=== PATIENT | female | born 1935 | race Caucasian/White ===

== ENCOUNTER → 2024-02-08 10:15 | Outpatient (REF) | payer OTHER, SELFPAY ==
[2024-02-08 11:27] LABS: % Basophils 0.5 % (0-2); % Eosinophils 3.2 % (0-6); % Immature Granulocytes 0.1 % (0-0.5); % Lymphocytes 23.5 % (20.5-51.1); % Monocytes 7.7 % (1.7-9.3); Absolute Eosinophils 0.2 10^3/uL (0-0.7); Absolute Lymphocytes 1.8 10^3/uL (1.2-3.4); Absolute Monocytes 0.6 10^3/uL (0.1-0.6); Absolute Neutrophils 4.9 10^3/uL (1.4-6.5); Hematocrit 30.5 % (37.0-47.0); Mean Corp Hgb Conc. 32.8 g/dL (33.0-37.0); Mean Corpuscular Hgb 29.5 pg (27.0-31.0); Mean Platelet Volume 11.6 fL (7.4-10.4); Nucleated Red Blood Cells % 0 %; Platelet Count 293 10^3/uL (130-400); Red Blood Cell Count 3.39 10^6/uL (4.20-5.40); Red Cell Dist. Width 13.2 % (11.5-14.5); White Blood Cell Count 7.5 10^3/uL (4.8-10.8)
[2024-02-08 11:55] LABS: ALT (SGPT) < 10 U/L (0-35); AST (SGOT) 15 U/L (14-36); Albumin 3.5 g/dl (3.5-5.0); Alkaline Phosphatase 79 U/L (38-126); Blood Urea Nitrogen 27 mg/dl (7-17); Calcium 10.4 mg/dl (8.4-10.2); Carbon Dioxide 30 mmol/L (22-30); Chloride 103 mmol/L (98-107); Glucose 91 mg/dl (70-99); HDL Cholesterol 62 mg/dl; LDL Cholesterol, Calculated 50 mg/dl; Potassium 4.1 mmol/L (3.5-5.1); Sodium 139 mmol/L (135-145); Total Bilirubin 0.4 mg/dl (0.2-1.3); Total Cholesterol 130 mg/dl (50-199); Total Protein 5.8 g/dl (6.3-8.2); Triglyceride 91 mg/dl (10-149); Very Low Density Lipoprotein 18 mg/dl (0-30); eGFR 54.19
[2024-02-08 12:33] LABS: TSH Reflex To Free T4 0.75 uIU/ml (0.47-4.68)
== END ==
LOC: OLABPV 10:15
PROVIDERS: ATTENDING PHYSICIAN Family Medicine
DX: Z13.1 Encounter for screening for diabetes mellitus (principal); N18.31 Chronic kidney disease, stage 3a; Z13.6 Encounter for screening for cardiovascular disorders; D64.9 Anemia, unspecified; Z13.29 Encounter for screening for other suspected endocrine disorder
CPT/HCPCS: 36415; 80053; 80061; 84443; 85025

== ENCOUNTER 2024-07-03 09:05 | Emergency (ER) | payer OTHER, SELFPAY ==
[2024-07-03 09:13] VITALS: BP 148/94
--- NOTE | 2024-07-03 09:32 | ED.GENMED ---
History of Present Illness
<RAFFI Flannery - Last Filed: 07/03/24 12:51>
General
Chief Complaint: Abdominal Pain
Source: patient and family
Exam Limitations: none
Time Seen by Provider: 07/03/24 09:25
Nursing documentation reviewed up to this point in time: agreed with
History of Present Illness
History of Present Illness:
Patient is a 89-year-old female past medical history of duodenal ulcer gastropathy anemia from [facility] independent living presents with right upper quadrant pain for the past 3 days. She denies any injury she feels that it is simply there however
she feels that when she turns or twists and changes position. she does feel it in her right-sided back as well. Currently she is asymptomatic. She is concerned because she reports she has a history of aneurysm. She has not aware of where the
aneurysm is. In review of records she has 3.2 cm abdominal aortic aneurysm. This was incidentally found she denies any chest pain.
She denies any nausea vomiting.
She denies any shortness of breath.
Past History
<RAFFI Flannery - Last Filed: 07/03/24 12:51>
Past History
ED Past Medical History: HTN, Hypercholesterolemia and Other (Spinal stenosis/sciatica)
ED Past Surgical History: Appendectomy, Gynecological and Orthopedic (Left total knee replacement)
Social History
Tobacco: Former smoker
Alcohol: None
Personal:
Living: assisted living
Review of Systems
<RAFFI Flannery - Last Filed: 07/03/24 12:51>
Review of Systems
Allergies reviewed?: Yes
All Other Systems: ROS reviewed and negative except as documented in HPI and ROS
Constitutional: Reports no symptoms
Respiratory: Denies trouble breathing
Cardiac: Reports no symptoms
: Reports other (pain in right upper abd region )
Skin: Reports no symptoms
Neurological: Reports no symptoms
Psychiatric: Reports no symptoms
Phy Exam
<RAFFI Flannery - Last Filed: 07/03/24 12:51>
General Physical Exam
General Presentation: no apparent distress
General age: appears stated age
General Skin: warm and dry
General Habitus: elderly
General Mental: alert
General Hydration: appears well hydrated
Cardiovascular Exam
Cardiovascular Exam: regular rate/rhythm, no murmur and normal peripheral pulses
Pulmonary Exam
Pulmonary Exam: lungs clear and no respiratory distress
Gastrointestinal Exam
Gastrointestinal Exam: soft and other (mild ruq tendernes non tender to ribs no rash )
Neurological Exam
Neurological Exam: alert
Musculoskeletal Exam
Musculoskeletal Exam: full ROM
Skin Exam
Skin Exam: normal color and warm/dry
Psychiatric Exam
Psychiatric Exam: normal mood/affect
Course
<RAFFI Flannery - Last Filed: 07/03/24 12:51>
Orders/Labs/Results
Orders:
Orders
07/03/24 09:19
ECG [Electrocardiogram (*1)] Urgent
Reason for Study: Abdominal Pain
EKG- Treatment ONCE
07/03/24 09:39
Cardiac Monitoring- Treatment ONCE
IV Insert/Care/Rem.- Treatment PRN
US Abdomen Complete/Upper Urgent
Comment:
Reason For Exam: ruq pain
07/03/24 10:03
Complete Blood Count/With Diff Urgent
Comprehensive Metabolic Panel Urgent
Lipase Urgent
07/03/24 11:09
CT Chest/abd/pelvis Angio W/wo Urgent
Comment:
Reason For Exam: abd pain known aneurysm
Abnormal Lab Results
07/03/24
10:03
RBC 3.21 L 10^6/uL
(4.20-5.40)
Hgb 9.5 L g/dL
(12.0-16.0)
Hct 29.5 L %
(37.0-47.0)
MCHC 32.2 L g/dL
(33.0-37.0)
Absolute Neuts (auto) 7.0 H 10^3/uL
(1.4-6.5)
Neutrophils % 78.3 H %
(42.2-75.2)
Lymphocytes % 13.1 L %
(20.5-51.1)
BUN 26 H mg/dl
(7-17)
Glucose 129 H mg/dl
(70-99)
Calcium 10.3 H mg/dl
(8.4-10.2)
Total Protein 5.9 L g/dl
(6.3-8.2)
07/03/24 10:03
07/03/24 10:03
Vital Signs
Initial and Last Documented VS:
Initial Vital Signs
Temp Pulse Resp BP Pulse Ox
97.8 F 79 18 148/94 97
07/03/24 09:13 07/03/24 09:13 07/03/24 09:13 07/03/24 09:13 07/03/24 09:13
Last Documented Vital Signs
Temp Pulse Resp BP Pulse Ox
97.8 F 88 17 135/114 94
07/03/24 09:13 07/03/24 12:16 07/03/24 12:16 07/03/24 11:08 07/03/24 12:16
Benefit Authorizer consulted with Physician
Benefit Authorizer consulted with physician?: Yes
Name of Physician Consulted: Fly
<Sherwin Bill MD - Last Filed: 07/03/24 16:40>
Orders/Labs/Results
Orders:
Orders
07/03/24 09:19
ECG [Electrocardiogram (*1)] Urgent
Reason for Study: Abdominal Pain
EKG- Treatment ONCE
07/03/24 09:39
Cardiac Monitoring- Treatment ONCE
IV Insert/Care/Rem.- Treatment PRN
US Abdomen Complete/Upper Urgent
Comment:
Reason For Exam: ruq pain
07/03/24 10:03
Complete Blood Count/With Diff Urgent
Comprehensive Metabolic Panel Urgent
Lipase Urgent
07/03/24 11:09
CT Chest/abd/pelvis Angio W/wo Urgent
Comment:
Reason For Exam: abd pain known aneurysm
Abnormal Lab Results
07/03/24
10:03
RBC 3.21 L 10^6/uL
(4.20-5.40)
Hgb 9.5 L g/dL
(12.0-16.0)
Hct 29.5 L %
(37.0-47.0)
MCHC 32.2 L g/dL
(33.0-37.0)
Absolute Neuts (auto) 7.0 H 10^3/uL
(1.4-6.5)
Neutrophils % 78.3 H %
(42.2-75.2)
Lymphocytes % 13.1 L %
(20.5-51.1)
BUN 26 H mg/dl
(7-17)
Glucose 129 H mg/dl
(70-99)
Calcium 10.3 H mg/dl
(8.4-10.2)
Total Protein 5.9 L g/dl
(6.3-8.2)
07/03/24 10:03
07/03/24 10:03
Vital Signs
Initial and Last Documented VS:
Initial Vital Signs
Temp Pulse Resp BP Pulse Ox
97.8 F 79 18 148/94 97
07/03/24 09:13 07/03/24 09:13 07/03/24 09:13 07/03/24 09:13 07/03/24 09:13
Last Documented Vital Signs
Temp Pulse Resp BP Pulse Ox
97.8 F 88 17 135/114 94
07/03/24 09:13 07/03/24 12:16 07/03/24 12:16 07/03/24 11:08 07/03/24 12:16
<RAFFI Flannery - Last Filed: 07/03/24 12:51>
MDM/Problems Addressed
MDM/Problems Addressed:
Patient is an 89-year-old female who presents to the ER for right-sided/right upper quadrant pain for the past several days. She denies any injury but does feel this is worse with movement. She does have a known abdominal aortic aneurysm. She
presents today awake alert in no acute distress well-appearing she is tender in the right upper quadrant. Lungs are clear she is nontachycardic not hypoxic she is hypertensive but does have a history of hypertension. She denies any fevers or white
count is normal hemoglobin is minimally low at 9. 5(was 10.0 February 07) .
Patient evaluate ED physician ultrasound initially done which did show a distal abdominal aortic aneurysm slightly larger than on prior study. CAT scan was done which does show again an infrarenal abdominal aortic aneurysm which has increased in
size from 3.4 cm to 3 no evidence of leakage or dissection. No other findings. Patient remains well-appearing in no acute distress. No pain presently
<RAFFI Flannery - Last Filed: 07/03/24 12:51>
*Radiology
Radiology exam reviewed: radiology read reviewed (Ultrasound shows: Distal abdominal aortic aneurysm has been previously but appears larger than on prior study)
*Pulse Oximetry
Patient hypoxic: no
*Critical Care Note
Total Time (30-74mins, 75-104mins- exclusive of procedures): Not Applicable
Data Reviewed
Review of Other/Old Records Reveals: Radiology Studies (aorta ultrasound shows stable fusiform infrarenal abdominal aortic aneurysm)
<Sherwin Bill MD - Last Filed: 07/03/24 16:40>
*EKG
Interpreted by ED Provider?: Yes
EKG Intrepretation Date: 07/03/24
Heart Rate: 84
Rate: normal
Rhythm: sinus
Natalia: normal axis
Interval: normal interval
QRS Pattern: normal QRS
ED Attending Note
<RAFFI Flannery - Last Filed: 07/03/24 12:51>
-
Portions of this chart may have been created with voice recognition software.� Occasional wrong word or��sound alike� substitutions may have occurred due to the inherent limitations of voice recognition software.
<Sherwin Bill MD - Last Filed: 07/03/24 16:40>
ED Attending Note
Patient seen and examined by attending physician: Yes
ED Attending Note:
Patient with history of abdominal aortic aneurysm, currently being monitored, presents ED secondary to intermittent upper abdominal pain over the past 2 days. Denies fever or chills. Denies trauma. Denies recent change in level of activities.
Abdominal pain described as 'discomfort', radiating to the back, without any alleviating or exacerbating factors. Denies loss of appetite. Denies recent change in medications or diet. Denies previous history of similar symptoms. Denies chest
pain or shortness of breath. Denies change in bowel habits. Deny recent travel.
Physical Exam
General: no apparent distress, not acutely ill. afebrile
Head: nc/at. eomi
Neck: supple. no meningeal signs.
Heart: s1/s2 regular rate and rhythm, no murmur. equal radial pulses.
Lungs: no acute respiratory distress. clear bilaterally
Abdomen: normal bowel sounds. mild RUQ tenderness to palpation.
Neuro: alert and oriented. no focal neurological deficits
Skin: no rash
Psychiatric: well kept. interactive and cooperative
Extremities: no edema. no calf tenderness.
Patient with an unremarkable workup in ED, including blood work and multiple imaging studies. Otherwise, patient remains afebrile, helically stable, and nontoxic-appearing. Patient with likely biliary disease versus gastritis versus
musculoskeletal pain. Advised Tylenol, PPI, and dietary modification, as well as outpatient PCP/GI follow-up. Advised to return to ED with worsening symptoms.
Discharge Plan
Departure
Patient Disposition: Home (Routine Discharge)
Date of Disposition: 07/03/24
Time of Disposition: 12:47
Patient with high blood pressure during this ER visit?: Yes
Covid-19: Not Applicable
Discharge Problem:
Abdominal pain
Instructions: Abdominal Pain, BLOOD PRESSURE
Prescriptions:
No Action
multivitamin [Daily Multiple] 1 EACH tablet
1 ea PO DAILY
acetaminophen [Tylenol Extra Strength] 500 MG tablet
1,000 mg PO DAILY PRN (Reason: pain)
fluticasone propion-salmeterol 1 DISK blister with device
1 puff inhalation BID
lisinopril-hydrochlorothiazide 1 EACH tablet
1 ea PO DAILY
pantoprazole 40 MG tablet,delayed release (DR/EC)
40 mg PO DAILY Qty: 30 0RF
aspirin 81 MG tablet,delayed release (DR/EC)
81 mg PO DAILY Qty: 10 0RF
Referrals:
sKatarina MD [Family Provider] -
Activity Restrictions/Additional Instructions:
Follow-up closely with family doctor in the next several days for reevaluation of symptoms return if any worsening of symptoms
Interventions
Interventions:
*Risk Screen - Suicide Last Done: 07/03/24 09:13
*General Assessment Last Done: 07/03/24 09:13
*Neglect/Abuse Screening Last Done: 07/03/24 09:13
ED- Fall Risk Assessment Last Done: 07/03/24 09:59
*ED COVID-19 Vaccine History Last Done: 07/03/24 09:48
*Nursing Disposition Last Done: 07/03/24 13:16
SV-Ciihhw-Xagoozjemx Assessment Last Done: 07/03/24 09:59
Discharge Date and Time
Discharge Date/Time: 07/03/24 13:17
Print Language: LITHUANIAN
[2024-07-03 09:48] VITALS: BMI 37.2
[2024-07-03 09:53] VITALS: BP 187/89
[2024-07-03 10:24] LABS: % Basophils 0.3 % (0-2); % Eosinophils 1.1 % (0-6); % Immature Granulocytes 0.4 % (0-0.5); % Lymphocytes 13.1 % (20.5-51.1); % Monocytes 6.8 % (1.7-9.3); % Neutrophils 78.3 % (42.2-75.2); Absolute Eosinophils 0.1 10^3/uL (0-0.7); Absolute Lymphocytes 1.2 10^3/uL (1.2-3.4); Absolute Monocytes 0.6 10^3/uL (0.1-0.6); Hematocrit 29.5 % (37.0-47.0); Hemoglobin 9.5 g/dL (12.0-16.0); Mean Corp Hgb Conc. 32.2 g/dL (33.0-37.0); Mean Corpuscular Hgb 29.6 pg (27.0-31.0); Mean Corpuscular Volume 91.9 fL (81.0-99.0); Mean Platelet Volume 10.4 fL (7.4-10.4); Nucleated Red Blood Cells % 0 %; Platelet Count 320 10^3/uL (130-400); Red Blood Cell Count 3.21 10^6/uL (4.20-5.40); Red Cell Dist. Width 13.1 % (11.5-14.5); White Blood Cell Count 8.9 10^3/uL (4.8-10.8)
[2024-07-03 10:32] LABS: ALT (SGPT) < 10 U/L (0-35); AST (SGOT) 14 U/L (14-36); Albumin 3.6 g/dl (3.5-5.0); Alkaline Phosphatase 88 U/L (38-126); Blood Urea Nitrogen 26 mg/dl (7-17); Calcium 10.3 mg/dl (8.4-10.2); Carbon Dioxide 26 mmol/L (22-30); Chloride 106 mmol/L (98-107); Estimated Creatinine Clearance 47 ml/min; Glucose 129 mg/dl (70-99); Potassium 3.8 mmol/L (3.5-5.1); Sodium 138 mmol/L (135-145); Total Bilirubin 0.2 mg/dl (0.2-1.3); Total Protein 5.9 g/dl (6.3-8.2); eGFR > 60.00
[2024-07-03 11:05] LABS: Lipase 57 U/L (23-300)
[2024-07-03 11:08] VITALS: BP 135/114
== END 2024-07-03 13:17 | disposition home or self-care (01) ==
LOC: EMR 09:05
PROVIDERS: Nurse Practitioner; EMERGENCY PHYSICIAN Emergency Medicine; FAMILY PHYSICIAN Internal Medicine
DX: R10.11 Right upper quadrant pain (principal); I10 Essential (primary) hypertension; E78.00 Pure hypercholesterolemia, unspecified; M48.00 Spinal stenosis, site unspecified; Z86.79 Personal history of other diseases of the circulatory system; Z87.891 Personal history of nicotine dependence; Z90.49 Acquired absence of other specified parts of digestive tract
CPT/HCPCS: 99284; 71275; 74174; 76700; 80053; 83690; 85025; 93005; Q9967